=== PATIENT | male | born 1960 | race Caucasian/White ===

== ENCOUNTER 2018-08-19 11:56 | Inpatient (IN) | payer OTHER ==
--- NOTE | 2018-08-19 06:43 | PDHPUP ---
History & Physical Update H&P update statement: This history and physical update is based on an assessment of the patient which was completed after admission or registration (within 24 hours), but prior to the surgery/procedure. H&P update: H&P reviewed & patient examined, no change in patient's condition since H&P completed
[~2018-08-19 11:56] MED LIST: ROPIVACAINE 0.2% 80 MG, EPINEPHrine 0.2 MG, KETOROLAC TROMETHAMINE 30 MG in SYRINGE 0 ML IU ONE; TRANEXAMIC ACID 3,000 MG in NS (SYRINGE) 50 ML IRR ONE; TRANEXAMIC ACID 3,000 MG/50 ML BAG IRR ONE
[2018-08-19] MEDS ORDERED: ACETAMINOPHEN 325 MG TAB PO ONE (12:27)
[2018-08-19] MEDS ORDERED: ceFAZolin 2 GM/DEXTROSE 100 ML IV ONE (12:27)
[2018-08-19] MEDS ORDERED: FAMOTIDINE 20 MG TAB PO ONE (12:27)
[2018-08-19] MEDS ORDERED: DEXAMETHASONE 4 MG/ML VIAL IVP ONE (12:27)
[2018-08-19] MEDS ORDERED: LR 1,000 ML IV ONE (12:29)
[2018-08-19] MEDS ORDERED: LIDOCAINE 2% 2 ML INJ ONE (12:54)
[2018-08-19] MEDS ORDERED: ONDANSETRON 4 MG/2 ML VIAL ONE (12:54)
[2018-08-19] MEDS ORDERED: MIDAZOLAM 2 MG/2 ML VIAL ONE (12:55)
[2018-08-19] MEDS ORDERED: PROPOFOL 200 MG/20 ML VIAL ONE (12:55)
[2018-08-19] MEDS ORDERED: PROPOFOL/EMULSION 500 MG/50 ML BOTTLE IV ONE ×3 (12:55→14:51)
[2018-08-19] MEDS ORDERED: LR 500 ML IV PRN (13:03)
[2018-08-19] MEDS ORDERED: NALOXONE HCL 0.4 MG/ML INJ IVP PRN (13:03)
[2018-08-19] MEDS ORDERED: oxyCODONE IR 5 MG TAB PO PRN (13:03)
[2018-08-19] MEDS ORDERED: PROMETHAZINE HCL 25 MG/ML INJ IVP PRN ×2 (13:03→15:27)
[2018-08-19] MEDS ORDERED: PHENYLEPHRINE HCL 100 MCG/ML SYR IVP PRN (13:03)
[2018-08-19] MEDS ORDERED: fentaNYL 100 MCG/2 ML INJ IVP PRN (13:03)
[2018-08-19] MEDS ORDERED: ONDANSETRON 4 MG/2 ML VIAL IVP PRN ×2 (13:03→15:27)
[2018-08-19] MEDS ORDERED: MEPERIDINE 25 MG/0.5 ML AMP IVP PRN (13:03)
[2018-08-19] MEDS ORDERED: HYDROmorphONE/DILAUDID 2 MG/ML INJ IVP PRN (13:03)
--- NOTE | 2018-08-19 14:29 | PDANEPAE ---
ANE Past Medical History - Cardiovascular History Hx Hypertension: No Hx Arrhythmias: No Hx Chest Pain: No Hx Coronary Artery / Peripheral Vascular Disease: No Hx CHF / Valvular Disease: No Hx Palpitations: No - Pulmonary History Hx COPD: No Hx Asthma/Reactive Airway Disease: No Hx Recent Upper Respiratory Infection: No Hx Oxygen in Use at Home: No Hx Sleep Apnea: No Sleep Apnea Screening Result - Last Documented: Negative Pulmonary History Comment: RECURRING SINUS INFECTION REQUIRING STEROIDS AND ANTIBIOTICS 12/2017 - Neurologic History Hx Cerebrovascular Accident: No Hx Seizures: No Hx Dementia: No - Endocrine History Hx Diabetes: No Endocrine History Comment: HYPOTHYROID - Renal History Hx Renal Disorders: No - Liver History Hx Hepatic Disorders: No - Neurological & Psychiatric Hx Hx Neurological and Psychiatric Disorders: No - Cancer History Hx Cancer: No - Congenital Disorder History Hx Congenital Disorders: No - GI History Hx Gastrointestinal Disorders: No - Other Health History Other Health History: OSTEOARTHRITIS - Chronic Pain History Chronic Pain: Yes (RT HIP) - Surgical History Prior Surgeries: RT HIP SCOPE LABRAL TEAR 11/2006. REMVL ORAL FÁTIMA 12/2006 ANE Review of Systems Review of Systems: - Exercise capacity METS (RN): 5 METS ANE Patient History - Allergies Allergies/Adverse Reactions: No Known Allergies Allergy (Verified 07/23/18 11:26) - Home Medications Home Medications: Acetaminophen [Tylenol ES 500 mg (*)] 1,000 mg PO Q6HRS PRN 07/23/18 [Last Taken 08/18/18] Diclofenac Sodium 1% [Voltaren Gel (*)] 1 martha TP DAILY PRN 07/23/18 [Last Taken 1 Week Ago ~08/12/18] Herbals/Supplements -Info Only 1 ea PO DAILY 07/23/18 [Last Taken 08/18/18] Nature Throid 1 Grain 1 each PO DAILY 07/23/18 [Last Taken 08/19/18 08:00] Progesterone 1mg 1 mg PO DAILY 07/23/18 [Last Taken 2 Weeks Ago ~08/05/18] celeCOXIB [Celebrex (*)] 200 mg PO DAILY PRN 07/23/18 [Last Taken 08/18/18] - NPO status NPO Since - Liquids (Date): 08/19/18 NPO Since - Liquids (Time): 11:00 NPO Since - Solids (Date): 08/18/18 NPO Since - Solids (Time): 23:00 - Smoking Hx Smoking Status: Former smoker ANE Labs/Vital Signs - Vital Signs Blood Pressure: 127/91 Heart Rate: 57 Respiratory Rate: 16 O2 Sat (%): 95 Height: 180.34 cm Weight: 83.915 kg ANE Physical Exam - Airway Neck exam: FROM Mallampati Score: Class 1 Mouth exam: normal dental/mouth exam - Pulmonary Pulmonary: no respiratory distress, no rales or rhonchi, clear to auscultation - Cardiovascular Cardiovascular: regular rate and rhythym, no murmur, rub, or gallop - ASA Status ASA Status: II ANE Anesthesia Plan Anesthesia Plan: spinal
[2018-08-19] MEDS ORDERED: diphenhydrAMINE 25 MG CAP PO PRN (15:27)
[2018-08-19] MEDS ORDERED: BISACODYL 10 MG SUPP PR PRN (15:27)
[2018-08-19] MEDS ORDERED: METOCLOPRAMIDE 10 MG/2 ML VIAL IVP PRN (15:27)
[2018-08-19] MEDS ORDERED: MAGNESIUM HYDROXIDE 30 ML UDCUP PO PRN (15:27)
[2018-08-19] MEDS ORDERED: ONDANSETRON DISINTEGRATING 4 MG TAB PO PRN (15:27)
[2018-08-19] MEDS ORDERED: TEMAZEPAM 15 MG CAP PO PRN (15:27)
[2018-08-19] MEDS ORDERED: DIPHENOXYLATE/ATROPINE LOMOTIL 1 TAB PO PRN (15:27)
[2018-08-19] MEDS ORDERED: PROMETHAZINE HCL 25 MG SUPPR PR PRN (15:27)
[2018-08-19] MEDS ORDERED: LACTULOSE 20 GM/30 ML UDCUP PO PRN (15:27)
[2018-08-19] MEDS ORDERED: POLYETHYLENE GLYCOL 3350 17 GM PKT PO PRN (15:27)
[2018-08-19] MEDS ORDERED: CYCLOBENZAPRINE 10 MG TAB PO PRN (15:27)
--- NOTE | 2018-08-19 15:27 | POSTOPPROG ---
Post Op Note Date of Operation: 08/19/18 Surgeon: Lamar Manrique Button Sewing Machine Operator: sarah manrique PA-C Anesthesiologist: dr. suh Anesthesia: Spinal Pre-op Diagnosis: right hip OA Post-op Diagnosis: same Indication: right hip pain Procedure: R DIANA ant approach, robot assisted Findings: severe hip OA Inf/Abcess present in the surg proc area at time of surgery?: No EBL: 100-500
[2018-08-19] MEDS ORDERED: oxyCODONE IR 5 MG TAB ONE (15:52)
--- NOTE | 2018-08-19 16:03 | POSTANESTH ---
Post Anesthetic Evaluation Cardiovascular Status: Normal, Stable Respiratory Status: Normal, Stable Level of Consciousness/Mental Status: Can Participate in Eval Pain Control: Adequate, Prn Tx Ordered Nausea/Vomiting Control: Adequate, Prn Tx Ordered Complications Possibly Related to Anesthesia: None Noted
[2018-08-19] MEDS: LR 1,000 ML IV SCH ×2 (16:39→18:30)
[2018-08-19] MEDS: ACETAMINOPHEN 325 MG TAB PO SCH ×2 (17:53→23:33)
[2018-08-19] MEDS ORDERED: NS 1,000 ML IV ONE (18:00)
[2018-08-19] MEDS: oxyCODONE IR 5 MG TAB PO PRN ×2 (18:35→21:17)
[2018-08-19] MEDS: FAMOTIDINE 20 MG TAB PO SCH (21:16)
[2018-08-19] MEDS: ASPIRIN 81 MG CHEWABLE TAB PO SCH (21:16)
[2018-08-19] MEDS: SENNOSIDES/DOCUSATE SODIUM TAB PO SCH (21:16)
[2018-08-19] MEDS: ceFAZolin 2 GM/DEXTROSE 100 ML IV SCH (21:22)
[2018-08-20] MEDS: LR 1,000 ML IV SCH (01:12)
[2018-08-20] MEDS: ceFAZolin 2 GM/DEXTROSE 100 ML IV SCH (05:14)
[2018-08-20] MEDS: ACETAMINOPHEN 325 MG TAB PO SCH (05:14)
[2018-08-20 08:25] VITALS: BP 107/59
[2018-08-20] MEDS: ASPIRIN 81 MG CHEWABLE TAB PO SCH (08:25)
[2018-08-20] MEDS: SENNOSIDES/DOCUSATE SODIUM TAB PO SCH (08:26)
[2018-08-20] MEDS: FAMOTIDINE 20 MG TAB PO SCH (08:26)
[2018-08-20] MEDS: oxyCODONE IR 5 MG TAB PO PRN (08:26)
--- NOTE | 2018-08-20 08:40 | SOAPPROG ---
SOAP Progress Note Assessment/Plan: Assessment: Patient is doing well POD 1 s/p R DIANA Pain management: pain is well controlled on oral pain meds. VTE ppx: recommend aspirin 81 mg BID for 4 weeks, cont MARYLIN and SCDs Anemia: level is expected initially postop. Asymptomatic. Continue to monitor D/c planning: d/c to home today pending release from PT lightheadedness: patient had episode of lightheadedness and low BP. resolved with fluids and rest. It appears it occurred shortly after IV morphine. patient feels better this am. Plan: 08/20/18 08:37 Subjective: patient denies SOB, chest pain and N/V. Objective: Vital Signs Temp Pulse Resp BP Pulse Ox 36.7 C 59 L 18 107/59 L 95 08/20/18 07:40 08/20/18 07:40 08/20/18 07:40 08/20/18 08:25 08/20/18 07:40 Laboratory Results 08/20/18 04:57 08/19/18 08/20/18 08/21/18 05:59 05:59 05:59 Intake Total 3660 Output Total 1920 Balance 1740 RLE: incision dressing is clean and dry, NVI, +pf/df ICD10 Worksheet Patient Problems: Problems Problem Status Onset Primary localized osteoarthritis of right hip Acute
--- NOTE | 2018-08-20 09:19 | GOP ---
DATE OF OPERATION: 08/19/2018 SURGEON: Agustín Barrett MD SHREDDING SPECIALIST: Opal Barrett, CORBIN. PREOPERATIVE DIAGNOSIS: Right hip osteoarthritis. POSTOPERATIVE DIAGNOSIS: Right hip osteoarthritis. PROCEDURE PERFORMED: Right total hip arthroplasty with computer navigation, robotic assist. FINDINGS: ESTIMATED BLOOD LOSS: 200 cc. INDICATIONS: The patient has progressively worsening arthritis of the hip which has failed medical m anagement. The patient understands the treatment option including continued non-operative care and h as selected surgical intervention. The patient has decided to undergo total hip arthroplasty via the direct anterior approach understanding the risks of the procedure including, but not limited to, derek rovascular injury, infection, persistent pain, component wear and loosening, deep venous thrombosis, pulmonary embolism, limb length inequality (including dislocation), and intraoperative fractures. DESCRIPTION OF PROCEDURE: After proper identification of the patient including verification and meaghan ing the surgical site, the patient was brought to the operating room and placed in the supine positio n. All bony prominences were well padded. Anesthesia was induced without complication and intraveno us prophylactic antibiotics were administered prior to skin incision. After prepping and draping in the usual sterile fashion, attention was drawn to the contralateral pel vis for attachment of the computer navigation tracker. Three percutaneous incisions were made over t he iliac crest and the pelvic tracker was affixed using threaded 3.5 mm pins yielding excellent fixat ion. Using computer navigation the patient's leg length and topographical pelvic anatomy was registe red without complication. Attention was then drawn to surgical exposure of the hip. An incision was made with a #[address] r blade starting 3 cm lateral and 3 cm distal to the anterior superior iliac spine measuring 8 cm to 10 cm and coursing distally toward the greater trochanter. The skin and subcutaneous tissues were di vided sharply down the fascia idalmis. The fascia idalmis was incised in line with the skin incision expos ing the underlying tensor fascia idalmis muscle. This muscle was bluntly elevated from the fascia and t he first extracapsular Cobra retractor was placed laterally at the junction of the superior femoral n bobo and greater trochanter. The lateral femoral circumflex vessels were identified, cauterized and d ivided with the Aquamantys bipolar cautery. The deep investing fascia of the TFL was divided to allo w proper mobilization of the muscle preventing damage during retraction. The reflected head of the r ectus femoris muscle was elevated off the anterior hip capsule and a medial Cobra retractor was place d just proximal to the lesser trochanter. The anterior capsulotomy was made sharply from the superolateral acetabulum to the saddle junction of the superior femoral neck and greater trochanter, then coursing inferomedial towards the lesser troc hanter. The retractors were then placed in the intracapsular position for femoral neck osteotomy. C orresponding to preoperative templating the osteotomy was made with the oscillating saw protecting th e greater trochanter and soft tissues. The femoral head was removed from the acetabulum with a corks crew and confirmed to be severely arthritic with exposed bone, deformity and osteophytes. Similar fi ndings were confirmed in the acetabulum. The Arch table extension was then placed in 40 degrees external rotation. Attention was then drawn t o the acetabular preparation. After placement of the anterior and posterior Cobra retractors outside the labrum and intrascapular the circumferential labrum was removed sharply. The foveal contents we re then removed and hemostasis obtained with cautery. The anatomy of the acetabulum was then registe red using computer navigation. The first reamer selected was sized using the removed femoral head. Reaming began with robotic kassie t at 40 degrees of abduction and 20 degrees of anteversion using computer navigation. Reaming ceased 0 mm less than the definitive acetabular component. The final acetabular component was inserted usi ng the computer to achieve proper orientation yielding excellent purchase and stability in the acetab ulum. The final acetabular liner was then placed and its seating confirmed. Attention was then turned to the femur. The Arch table extension was placed in extension and adducti on delivering the osteotomized femoral neck into the wound. A 2-pronged femoral elevator was placed at the calcar and another at the tip of the greater trochanter. The posterolateral capsule was relea sed with cautery allowing mobilization of the femur lateral and anterior for preparation. The guard entrance registrar al rotators were visualized and preserved. A curette and rongeur were used to open the starting poin t for broaching. Serial broaching started with the #0 broach and ended with the broach that exhibited excellent fit in the proximal femur. A change in pitch during mallet strikes was accompanied by the inability to advance the broach any further. The trial reduction was performed and fluoroscopic aquilino igation was utilized to check limb length. Adjustments were made to equalize limb length accordingly . After the final trials were accepted they were removed and the wound was copiously lavaged. The femo ral component was seated to the same depth as the final broach and the femoral head was impacted onto the clean trunnion. The hip was then reduced for the final time and once more fluoroscopic navigati on used to check that limb length equality was achieved. The wound was irrigated and closed in layers, the fascia idalmis with 2-0 Quill, the subcutaneous tissue with a 2-0 Quill, and the skin with Dermabond, including the small incisions for computer navigation . Sterile dressings were applied. Final sharps and sponge counts were accurate. The patient was th en transferred to a hospital bed and brought to the recovery room in stable condition. IMPLANT: Accolade II size 6 at 127, acetabular component a Trident II 56 mm, liner is a Trident X3 3 6 mm, head is a Biolox Delta at 36 mm +2.5. /[id number]/MODL
--- NOTE | 2018-08-20 09:44 | ASMTLACE ---
LACE Length of stay for Answers: 2 days current admission Acuity / Level of Answers: Yes Care: Did the patient have an inpatient admission? Comorbidities - select Answers: Opioid dependence all that apply / Chronic pain Other Notes: Hypothyroid # of Emergency department Answers: 0 visits in the last 6 months Score: 10 Date Signed: 08/20/2018 09:43 AM Electronically Signed By:LAUREN Lara
== END 2018-08-20 11:38 | disposition home or self-care (01) | DRG 470 ==
LOC: F3N 12:15
PROVIDERS: ADMIT Orthopaedic Surgery; ATTEND Orthopaedic Surgery
DX: M16.11 Unilateral primary osteoarthritis, right hip (principal); E03.9 Hypothyroidism, unspecified
CPT/HCPCS: 97116-GP; 97161-GP; J0171; J0690; J1100; J1885; J2250; J2270; J2405; J2704; J2795

== ENCOUNTER 2019-01-12 08:01 | Emergency (ER) | payer OTHER ==
[2019-01-12] MEDS ORDERED: fentaNYL 100 MCG/2 ML INJ IVP ONE ×4 (08:11→10:11)
[2019-01-12] MEDS ORDERED: ONDANSETRON 4 MG/2 ML VIAL IVP ONE ×2 (08:11→08:44)
--- NOTE | 2019-01-12 08:12 | EDPHY ---
H & P Time Seen by Provider: 01/12/19 08:06 HPI/ROS: CHIEF COMPLAINT: Right hip pain HISTORY OF PRESENT ILLNESS: The patient is a 58-year-old male who presents emergency department with right hip pain. Patient states that he had his hip replaced by Dr. Barrett in August 2018. He has had no complications since the replacement. He was doing yoga pose this morning when he felt his right hip "pop out." He thinks his right hip is dislocated. He has moderate pain. Pain is primarily located around his right hip. It does not radiate. He has no numbness or tingling. He denies injuring cell from the fall. The patient reports that before we do anything, we should contact Dr. Barrett's office. REVIEW OF SYSTEMS: 10 systems were reveiwed and are negative with the exception of the elements mentioned in the history of present illness. Past Medical/Surgical History: Past surgical history: Includes right hip replacement Social history: Patient does not smoke Smoking Status: Former smoker Physical Exam: Vitals noted GENERAL: No acute distress, alert. The patient appears comfortable. HEENT: Eyes normal to inspection, normal pharynx, no signs of dehydration. NECK: Normal, supple. RESPIRATORY: Clear to auscultation bilaterally, no rales, rhonchi or wheezing. CVS: Regular rate and rhythm, no rubs, murmurs, or gallops. ABDOMEN: Soft, nontender, nondistended, no organomegaly. BACK: Normal to inspection, no CVA tenderness. SKIN: Normal color, no rash, warm, dry. No pallor. EXTREMITIES: Patient has mild deformity at his right hip. There is mild tenderness to palpation. Slight shortening of the right leg. No pedal edema, no calf tenderness, no Homans sign or cords, no joint swelling. NEURO/PSYCH: Alert and oriented, normal mood and affect, normal motor sensory exam. No obvious cranial nerve deficit. Constitutional: Initial Vital Signs Temperature (C) 36.2 C 01/12/19 08:01 Heart Rate 59 L 01/12/19 08:01 Respiratory Rate 16 01/12/19 08:01 Blood Pressure 170/105 H 01/12/19 08:01 O2 Sat (%) 98 01/12/19 08:01 O2 Delivery Mode Nasal Cannula,Non-Rebreather Mask O2 (L/minute) 19 Allergies/Adverse Reactions: No Known Allergies Allergy (Verified 01/12/19 08:19) Home Medications: Medication Instructions Recorded Nature Throid 1 Grain 1 each PO DAILY 07/23/18 celeCOXIB [Celebrex (*)] 200 mg PO DAILY cap 08/20/18 Ondansetron Odt [Zofran Odt 4 mg 4 mg PO Q4PRN PRN #7 tab 01/12/19 (*)] oxyCODONE/APAP 5/325 [Percocet 1 - 2 tab PO Q4PRN PRN #11 tab 01/12/19 5/325 (*)] Medical Decision Making - Diagnostics Imaging Results: Imaging Impressions Hip X-Ray 01/12/19 08:11 Impression: Right hip dislocation Hip X-Ray 01/12/19 09:03 Impression: Status post closed reduction, with anatomic realignment of the previously-dislocated right hip arthroplasty. Procedures: Procedure: Procedural sedation. Indication: Hip dislocation. A pre-sedation evaluation was completed on the patient just prior to the procedure. Patient is an appropriate candidate for procedural sedation with ASA class E. The risks of the sedation were discussed including but not limited to dysrhythmia, need for airway intervention or general anesthesia, disability, ; and verbal consent obtained. A timeout was observed and patient's identity confirmed. The patient was sedated with propofol. The patient was monitored with continuous pulse oximetry, capnography, and front desk monitor. There were no complications and no significant hypoxemia. I remained at the bedside for the sedation. The total time I spent in the procedural sedation was 15 min . Procedure: Hip reduction Indication: Hip dislocation Using standard technique and manual pressure the patient's hip was relocated. He was neurovascular intact post relocation. Post reduction x-ray confirmed normal anatomical position. ED Course/Re-evaluation: In the emergency department I discussed possible etiologies with the patient. I answered all his questions. An IV was placed. Patient given fentanyl 50 mcg IV for pain control. He is given Zofran 4 mg IV for nausea vomiting. X-ray of his right hip was ordered. I discussed the case with Dr. Barrett. Right hip x-ray: The patient has a dislocated hip. No visible fracture. I discussed relocation with the patient. He consented. I discussed risks and benefits with the patient. Patient tolerated conscious sedation well. His hip was relocated by standard technique. Neurovascular intact distally post reduction Post reduction x-ray: Hip relocated. Hardware intact. I discussed results with the patient. Patient was recheck numerous occasions. He was doing well. He had decreased pain in his hip. He was neurovascular intact distally. He was awake post sedation. He has answer my questions appropriately. Patient was given warnings prior to leaving. He will return with worsening symptoms. He will follow up with Dr. Barrett. He will call today to make the next available appointment. Differential Diagnosis: My differential includes but is not limited to fracture, dislocation, sprain, strain, hardware failure - Data Points Medications Given: Discontinued Medications Fentanyl (Sublimaze) 50 mcg IVP EDNOW ONE Stop: 01/12/19 08:12 Last Admin: 01/12/19 08:28 Dose: 50 mcg Fentanyl (Sublimaze) 50 mcg IVP EDNOW ONE Stop: 01/12/19 08:45 Last Admin: 01/12/19 08:47 Dose: 50 mcg Fentanyl (Sublimaze) 100 mcg IVP EDNOW ONE Stop: 01/12/19 10:12 Last Admin: 01/12/19 10:13 Dose: 75 mcg Fentanyl (Sublimaze) 25 mcg IVP EDNOW ONE Stop: 01/12/19 10:12 Last Admin: 01/12/19 08:57 Dose: 50 mcg Sodium Chloride (Ns) 1,000 mls @ 0 mls/hr IV ONCE ONE PRN Reason: Wide Open Stop: 01/12/19 08:46 Last Admin: 01/12/19 08:47 Dose: 1,000 mls Ondansetron HCl (Zofran) 4 mg IVP EDNOW ONE Stop: 01/12/19 08:12 Last Admin: 01/12/19 08:27 Dose: 4 mg Ondansetron HCl (Zofran) 4 mg IVP EDNOW ONE Stop: 01/12/19 08:45 Last Admin: 01/12/19 08:49 Dose: 4 mg Propofol (Diprivan) 90 mg IVP EDNOW ONE Stop: 01/12/19 08:46 Last Admin: 01/12/19 08:53 Dose: 90 mg Propofol (Diprivan) 50 mg IVP EDNOW ONE Stop: 01/12/19 10:09 Last Admin: 01/12/19 08:57 Dose: 50 mg Propofol (Diprivan) 50 mg IVP EDNOW ONE Stop: 01/12/19 10:11 Last Admin: 01/12/19 09:00 Dose: 50 mg Departure - Departure Disposition: Home, Routine, Self-Care Clinical Impression: Hip pain, right, Hip dislocation, right Condition: Good Instructions: Hip Dislocation (ED) Additional Instructions: You should use your crutches and be nonweightbearing until you follow up with Dr. Barrett. Call his office today to make next available appointment. Return with increasing pain, numbness, weakness or any other concerns. Referrals: Patient,NotPresent [Unknown] - As per Instructions Lamar Barrett MD [Medical Doctor] - As per Instructions Prescriptions: Ondansetron Odt [Zofran Odt 4 mg (*)] 4 mg PO Q4PRN PRN #7 tab PRN Reason: For Nausea & Vomiting oxyCODONE/APAP 5/325 [Percocet 5/325 (*)] 1 - 2 tab PO Q4PRN PRN #11 tab PRN Reason: For Moderate To Severe Pain
[2019-01-12] MEDS ORDERED: PROPOFOL 200 MG/20 ML VIAL ONE (08:41)
[2019-01-12] MEDS ORDERED: NS 1,000 ML IV ONE (08:45)
[2019-01-12] MEDS ORDERED: PROPOFOL 200 MG/20 ML VIAL IVP ONE ×3 (08:45→10:10)
[2019-01-12] MEDS ORDERED: ONDANSETRON 4 MG/2 ML VIAL ONE (08:46)
[2019-01-12] MEDS ORDERED: fentaNYL 100 MCG/2 ML INJ ONE (08:46)
[2019-01-12] MEDS ORDERED: NALOXONE HCL 2 MG/2 ML SYR IVP ONE (09:04)
[2019-01-12 11:08] VITALS: BP 144/91
== END 2019-01-12 11:37 | disposition home or self-care (01) ==
LOC: EDUNIT#
PROC: 0SS9XZZ Reposition Right Hip Joint, External Approach (ICD-10-PCS; principal; 2019-01-12)
DX: S73.004A Unspecified dislocation of right hip, initial encounter (principal); E86.9 Volume depletion, unspecified; Z96.641 Presence of right artificial hip joint; X50.9XXA Other and unspecified overexertion or strenuous movements or postures, initial encounter; Y93.42 Activity, yoga
CPT/HCPCS: 96374; J2310; J2405; J2704; J3010